=== PATIENT | female | born 1970 | race Caucasian/White ===

== ENCOUNTER → 2019-12-26 | Outpatient (CLI) | payer BC ==
--- NOTE | 2019-12-26 19:00 | RAD ---
Examination: 1. Right diagnostic mammogram. 2. Right targeted breast ultrasound. INDICATION: 49-year-old woman recalled from screening for an upper-outer quadrant right breast mass. COMPARISON: Bilateral mammograms of 12/16/2019 and 03/25/2018. FINDINGS: Additional diagnostic views of the right breast in the ML projection, right CC projection and in the right X CCL projection with 3-D technique, from the presence of a dense oval mass in the posterior upper outer quadrant right breast approximately 3 cm in length and has microlobulated margins. No additional mammographic findings were identified in this heterogeneously dense breast. The mammographic mass underwent additional imaging with targeted right breast ultrasound revealing a hypoechoic 3.2 cm parallel orientation mass with microlobulated margins and internal vascularity associated with right axillary adenopathy with at least one lymph node measuring 1.7 cm in length showing eccentric cortical thickening to 6 mm. IMPRESSION: Right breast mass and axillary adenopathy are highly suggestive of malignancy. Biopsy is recommended. Patient was notified of these imaging findings and recommendation for biopsy by the cytometry technologist on my behalf and at my request prior to her discharge from the imaging suite and I also discussed these findings and my recommendations with the patient's referring provider Dr. July Blair by telephone at 3:00 PM on December 26, 2019. Dr. Castillo agreed to arrange all necessary appropriate follow-up thereafter. BI-RADS Category 5 Highly suggestive of malignancy Biopsy recommended Electronically signed by: Scooter Laird MD (12/26/2019 6:57 PM) [facility]
--- NOTE | 2019-12-26 19:00 | RAD ---
Examination: 1. Right diagnostic mammogram. 2. Right targeted breast ultrasound. INDICATION: 49-year-old woman recalled from screening for an upper-outer quadrant right breast mass. COMPARISON: Bilateral mammograms of 12/16/2019 and 03/25/2018. FINDINGS: Additional diagnostic views of the right breast in the ML projection, right CC projection and in the right X CCL projection with 3-D technique, from the presence of a dense oval mass in the posterior upper outer quadrant right breast approximately 3 cm in length and has microlobulated margins. No additional mammographic findings were identified in this heterogeneously dense breast. The mammographic mass underwent additional imaging with targeted right breast ultrasound revealing a hypoechoic 3.2 cm parallel orientation mass with microlobulated margins and internal vascularity associated with right axillary adenopathy with at least one lymph node measuring 1.7 cm in length showing eccentric cortical thickening to 6 mm. IMPRESSION: Right breast mass and axillary adenopathy are highly suggestive of malignancy. Biopsy is recommended. Patient was notified of these imaging findings and recommendation for biopsy by the radiologic technologist chief on my behalf and at my request prior to her discharge from the imaging suite and I also discussed these findings and my recommendations with the patient's referring provider Dr. July Blair by telephone at 3:00 PM on December 26, 2019. Dr. Castillo agreed to arrange all necessary appropriate follow-up thereafter. BI-RADS Category 5 Highly suggestive of malignancy Biopsy recommended Electronically signed by: Scooter Laird MD (12/26/2019 6:57 PM) [facility]
== END | disposition home or self-care (01) ==
LOC: MAMMO 14:01
PROVIDERS: ATTEND Family Medicine
DX: R59.0 Localized enlarged lymph nodes (principal); N63.11 Unspecified lump in the right breast, upper outer quadrant
CPT/HCPCS: 76641; 77065; G0279; 77061

== ENCOUNTER → 2020-09-25 | Outpatient (CLI) | payer BC | LOC: LAB 14:59 | DX: Z20.828 Contact with and (suspected) exposure to other viral communicable diseases (principal) | CPT/HCPCS: U0003 ==

== ENCOUNTER → 2021-04-04 | Outpatient (CLI) | payer BC | LOC: LAB 08:24 | PROVIDERS: ATTEND Surgery Plastic and Reconstructive Surgery | DX: Z20.822 Contact with and (suspected) exposure to COVID-19 (principal) | CPT/HCPCS: 87426; C9803; U0003 ==